=== PATIENT | male | born 1925 | race Caucasian/White ===

== ENCOUNTER 2016-10-04 14:39 | Inpatient (IN) | payer OTHER, MEDICAID ==
[~2016-10-04] VITALS: Ht 177.8 cm; Wt 81.6 kg
[2016-10-04 14:39] VITALS: BP 144/80; PULSE 72; RESP 15; TEMP 96.4; O2SAT 98
[~2016-10-04 14:39] MED LIST: ACET-1010 PO; ALPHAGAN1 OP; BISA-79 PO; BUDE6HFA INH; CHOL200010 PO; ERYEYE OP; FERR-57 PO; LOPE2CAP PO; NS 1000 ML BAG IV ONE; POLY17PO4 PO; PRAM0.5T3 PO; PRAM1TAB4 PO; PROP10DR2 EACH EYE; ROBAC PO; SER25 PO; TRIA1CAP53 PO; TRIA1CAP6 PO; TRIA80OI TP; VITD2000 PO; [UNRECOGNIZED DRUG - OTHER] OP
--- NOTE | 2016-10-04 14:39 | NUR ---
BIB BLS from [facility]. Placed in room 06. Placed on cardiac cath rn, blood pressure machine and pulse oximeter. To gown for exam. Side rails up. Report given to NEERAJ Ross.
--- NOTE | 2016-10-04 14:40 | NUR ---
PT BIB EMS FOR EVALUATION OF ABNORMAL LABS.PT ALOC BASELINE,NONVERBAL,HTN,PACEMAKER,CHF AND R EYE BLINDNESS.PT HYPOTHERMIC UPON ARIVAL 89.9 RECTAL. BROOKE GRAYSON ORDERED. INFORMED. SEPSIS PROTOCOL INITIATED.
--- NOTE | 2016-10-04 14:45 | NUR ---
ER at bedside examining patient.
--- NOTE | 2016-10-04 14:50 | NUR ---
# 20 gauge angiocath placed to L UPPER CHEST. Use of asceptic technique. Opsite placed over site. Blood return noted. Flushed with 10 cc of normal saline. No evidence of infiltration noted. Patient tolerated well.
[2016-10-04] MEDS ORDERED: NACL 0.9% 1,000 ML IV SCH (14:56)
[2016-10-04] MEDS ORDERED: cefTRIAXone 1 GM IVPB PREMIX 50 ML IV ONE (15:00)
[2016-10-04 15:28] LABS: BASOPHILS % (AUTO) 0.1 % (0.0-2.0); EOSINOPHILS # (AUTO) 0.2 K/uL (0.0-0.4); EOSINOPHILS % (AUTO) 2.1 % (0.0-4.0); HEMATOCRIT 34.3 % (36-54); HEMOGLOBIN 11.6 g/dL (14.0-18.0); LYMPHOCYTES # (AUTO) 1.1 K/uL (1.0-5.5); LYMPHOCYTES % (AUTO) 9.5 % (20.5-51.5); MEAN CORPUSCULAR HEMOGLOBIN 32 pg (27-31); MEAN CORPUSCULAR HGB CONC 34 % (32-36); MEAN CORPUSCULAR VOLUME 95 fL (79.0-98.0); MONOCYTES # (AUTO) 0.4 K/uL (0.0-1.0); MONOCYTES % (AUTO) 3.5 % (1.7-9.3); NEUTROPHILS # (AUTO) 9.7 K/uL (1.8-7.7); NEUTROPHILS % (AUTO) 84.8 % (40.0-70.0); RED CELL DISTRIBUTION WIDTH 15.4 % (9.0-15.0); WHITE BLOOD COUNT (AUTO) 11.4 K/uL (4.8-10.8)
--- NOTE | 2016-10-04 15:30 | NUR ---
PT TOLERATING ABX AND IVF.
[2016-10-04 15:34] LABS: ANION GAP 8 (5-15); CALCIUM 9.3 mg/dL (8.4-11.0); CHLORIDE 109 mmol/L (98-107); GLUCOSE 113 mg/dL (70-99); POTASSIUM 4.2 mmol/L (3.5-5.1); SODIUM SERUM 140 mmol/L (136-145); UREA NITROGEN, BLOOD 64 mg/dL (8-21)
[2016-10-04 15:38] LABS: ALANINE AMINOTRANSFERASE 16 U/L (12-78); ALBUMIN 2.7 g/dL (3.4-4.8); ASPARTATE AMINOTRANSFERASE 26 U/L (10-37); TOTAL BILIRUBIN 0.5 mg/dL (0.0-1.0); TOTAL PROTEIN, SERUM 7.2 g/dL (6.4-8.3)
[2016-10-04 15:39] LABS: PLATELET COUNT (AUTO) 94 K/uL (130-430)
[2016-10-04] MEDS ORDERED: PIPERACILLIN/TAZO 3.375 GM in NS 50 ML IV ONE (16:00)
--- NOTE | 2016-10-04 16:00 | NUR ---
# 16 FR Valdes catheter with use of sterile technique. Immediate return of 100 cc DARK YELLOW urine noted. Bedside drainage bag placed below level of bladder. Urine sample collected and sent to lab. Pt tolerated procedure WELL. Patient arrived with valdes in place, changed due to standard of practice prior to admission. Patient unable to toilet self.
[2016-10-04] MEDS ORDERED: ZIN220 PO (16:18)
[2016-10-04] MEDS ORDERED: ACET-2165 PO ×2 (16:18)
[2016-10-04] MEDS ORDERED: ALPR0.5T96 PO (16:18)
--- NOTE | 2016-10-04 16:19 | NUR ---
Medication reconciliation completed with information provided by Brandon Patel. Any prior medication reconciliation on file was reviewed and corrected.
[2016-10-04 16:32] LABS: BILIRUBIN,URINE NEGATIVE (NEGATIVE); BLOOD, URINE NEGATIVE (NEGATIVE); CLARITY/URINE HAZY (CLEAR); COLOR,URINE YELLOW (YELLOW); GLUCOSE,URINE NEGATIVE (NEGATIVE); KETONES,URINE NEGATIVE (NEGATIVE); LEUKOCYTE ESTERASE ,URINE NEGATIVE (NEGATIVE); NITRITE, URINE NEGATIVE (NEGATIVE); PH,URINE 5.5 (5.0-8.0); PROTEIN URINE NEGATIVE (NEGATIVE); UROBILINOGEN,URINE 0.2 (0.2-1.0)
[2016-10-04] MEDS ORDERED: PIPERACILLIN/TAZOBACTAM 3.375 GM/VIAL (ZOSYN) IV ONE (16:33)
[2016-10-04 16:45] LABS: BACTERIA,URINE MODERATE /HPF (None Seen); FINE GRANULAR CASTS,URINE 0-10 /LPF (None Seen); MUCUS,URINE 1+ /LPF (None Seen); RBC,URINE NONE SEEN /HPF (0-3)
--- NOTE | 2016-10-04 17:00 | NUR ---
TEMP 96.5.CONTINUING TO MONITOR.
--- NOTE | 2016-10-04 18:30 | NUR ---
Patient will be admitted to care of . Admitted to TELEMETR unit. Will go to room 105A. Belongings list completed. Summary report printed. Report given to ADMISSION RN.
--- NOTE | 2016-10-04 18:46 | NUR ---
ADMISSION NOTE Received patient from ER via [facility]. Patient admitted with diagnosis of Dehydration. Patient is awake, non-verbal. Patient's daughter at bedside. Patient informed that Martha Winn will be his nurse and that their room number is 105A. Call light within reach.
[2016-10-04 18:50] VITALS: BP 94/63; PULSE 74; RESP 17; TEMP 96.9; O2SAT 90
--- NOTE | 2016-10-04 19:26 | NUR ---
paged for Dr Lau, dialed . s/w Blayne.
[2016-10-04] MEDS ORDERED: ACETAMINOPHEN 325 MG TABLET PO PRN ×2 (19:45)
[2016-10-04] MEDS ORDERED: ALPRAZolam 0.25 MG TABLET PO PRN (19:45)
[2016-10-04] MEDS ORDERED: POLYETHYLENE GLYCOL 3350, 17 GM/ POWD.PACK PO PRN (19:45)
[2016-10-04] MEDS ORDERED: ACETAMINOPHEN 500 MG TABLET PO PRN (19:45)
[2016-10-04] MEDS ORDERED: NS 500 ML IV ONE (19:45)
[2016-10-04] MEDS ORDERED: cefTRIAXone 1 GM IVPB PREMIX 50 ML IV SCH (20:00)
--- NOTE | 2016-10-04 20:00 | NUR ---
DR. STEINBERG CALLED BACK. GOT AN ORDER FOR BOTH WRIST AND MITTEN RESTRAINTS. PATIENT COMBATIVE, 3 STAFFS TO INITIATE RESTRAINTS. SPITTING./ HITTING STAFFS.
--- NOTE | 2016-10-04 20:11 | NUR ---
paged for Dr Lau, dialed . s/w Kassi.
[2016-10-04] MEDS ORDERED: BRIMONIDINE TARTRATE 0.1% 5 mL EYE DROPS OP SCH (21:00)
--- NOTE | 2016-10-04 21:30 | NUR ---
PO MEDS NOT GIVEN. REFUSE TO OPEN MOUTH,INSTEAD SPITTING SALIVA. ESTEVES CATH PATENT.
[2016-10-04] MEDS: PRAMIPEXOLE DI-HCL 0.25 MG TABLET PO SCH (22:00)
[2016-10-04] MEDS: QUEtiapine FUMARATE 25 MG TABLET PO SCH (22:00)
[2016-10-04] MEDS: BRIMONIDINE TARTRATE 0.2% 5 mL EYE DROPS OP SCH (22:00)
--- NOTE | 2016-10-04 23:00 | NUR ---
WOUND PICTURES TAKEN BY 4 STAFFS PICTURE TAKEN.REPOSITIONED.
[2016-10-04] MEDS: NACL 0.9% 1,000 ML IV SCH (23:25)
[2016-10-05 00:51] VITALS: BP 109/80; PULSE 78; RESP 16; TEMP 97.1; O2SAT 96
--- NOTE | 2016-10-05 02:00 | NUR ---
REPOSITIONED. COMBATIVE STILL.
--- NOTE | 2016-10-05 03:00 | NUR ---
ORDER OF AIR MATTRESS GIVEN TO NSG.OFFSET PLATE MAKER.
[2016-10-05 04:00] VITALS: BP 111/84; PULSE 84; RESP 16; TEMP 97.6; O2SAT 98
--- NOTE | 2016-10-05 06:30 | NUR ---
CLOSING: PATIENT REMAINS CALM. NO ACUTE DISTRESS. ALL NEEDS WERE ATTENDED.
[2016-10-05 07:14] LABS: BASOPHILS % (AUTO) 0.2 % (0.0-2.0); EOSINOPHILS # (AUTO) 0.3 K/uL (0.0-0.4); EOSINOPHILS % (AUTO) 2.6 % (0.0-4.0); HEMATOCRIT 31.4 % (36-54); HEMOGLOBIN 10.5 g/dL (14.0-18.0); LYMPHOCYTES % (AUTO) 9.4 % (20.5-51.5); MEAN CORPUSCULAR HEMOGLOBIN 32 pg (27-31); MEAN CORPUSCULAR HGB CONC 33 % (32-36); MEAN CORPUSCULAR VOLUME 95 fL (79.0-98.0); MONOCYTES # (AUTO) 0.6 K/uL (0.0-1.0); MONOCYTES % (AUTO) 5.5 % (1.7-9.3); NEUTROPHILS # (AUTO) 8.6 K/uL (1.8-7.7); PLATELET COUNT (AUTO) 101 K/uL (130-430); RED BLOOD CELL COUNT(AUTO) 3.31 MIL/uL (4.2-6.2); RED CELL DISTRIBUTION WIDTH 15.8 % (9.0-15.0); WHITE BLOOD COUNT (AUTO) 10.5 K/uL (4.8-10.8)
--- NOTE | 2016-10-05 07:20 | NUR ---
AM Rounds: Received pt sitting semi-fowlers in bed. No acute signs of distress noted. Pt is easily arousable to name and tapping. Pt is difficult to understand, speech is garbled, does not follow simple commands. Bilateral wrist restraints and mittens noted. Neuro and circulation intact to BUE and BLE. Brisk cap refill, strong hand eyelet machine operator, pulses palpable, and active ROM to BUE and BLE. Redness noted to BUE around wrist restraints. Pt is pulling hard against restraints. Dressings to heel, and elbow CDI. IV infusing well to Right upper arm with no redness or swelling noted to site. Damon cath draining well to gravity. Call light in reach. Aspiration precautions in place. Heel elevated at this time. Continue to monitor pt closely.
[2016-10-05] MEDS: NACL 0.9% 1,000 ML IV SCH ×2 (07:59→15:54)
--- NOTE | 2016-10-05 08:00 | NUR ---
PATIENT CALM. REFUSING ORAL CARE. Addendum: 10/05/16 at 0852 by Isabel Núñez RN TIME OF THIS NOTES IS 0400HR.
[2016-10-05 08:05] VITALS: BP 123/57; PULSE 82; RESP 18; TEMP 97.8; O2SAT 92
[2016-10-05 08:28] LABS: ANION GAP 7 (5-15); CALCIUM 8.7 mg/dL (8.4-11.0); CHLORIDE 111 mmol/L (98-107); FREE T4 (FREE THYROXINE) 0.7 ng/dL (0.6-1.6); GLUCOSE 76 mg/dL (70-99); POTASSIUM 4.6 mmol/L (3.5-5.1); SODIUM SERUM 141 mmol/L (136-145); THYROID STIMULATING HORMONE 1.03 uIu/mL (0.34-4.82); UREA NITROGEN, BLOOD 54 mg/dL (8-21)
[2016-10-05] MEDS: QUEtiapine FUMARATE 25 MG TABLET PO SCH ×5 (09:00→21:00)
[2016-10-05] MEDS: CHOLECALCIFEROL (VITAMIN D3) 2,000 UNIT TABLET PO SCH (09:00)
[2016-10-05] MEDS: PRAMIPEXOLE DI-HCL 0.25 MG TABLET PO SCH ×3 (09:00→21:00)
[2016-10-05] MEDS: FERROUS SULFATE 325 MG TABLET.DR PO SCH (09:00)
[2016-10-05] MEDS: BRIMONIDINE TARTRATE 0.2% 5 mL EYE DROPS OP SCH ×2 (09:00→21:00)
[2016-10-05] MEDS: ACETAMINOPHEN 325 MG TABLET PO SCH (09:00)
--- NOTE | 2016-10-05 09:39 | NUR ---
RN Rounds: Pt refuse meds, refuse to swallow meds and spitting back out at nurse. Bilateral wrist restraints and mittens in place. No acute signs of distress noted. IV fluids infusing well to Left upper arm with no redness or swelling to site. Call light in reach. Continue to monitor.
[2016-10-05 11:04] LABS: NEUTROPHILS % (AUTO) 82.3 % (40.0-70.0)
[2016-10-05 11:15] VITALS: BP 118/57; PULSE 72; RESP 20; TEMP 97.6; O2SAT 98
--- NOTE | 2016-10-05 11:25 | NUR ---
Rounds: Pt sitting semi-fowlers in bed. No acute signs of distress noted. Sleeping, breathing even and unlabored on room air. Call light in reach. Pt pulling hard on restraints at this time. Damon cath draining well to gravity. Continue to monitor.
--- NOTE | 2016-10-05 13:16 | NUR ---
Rounds: Pt sitting semi-fowlers in bed. Refusing applesauce at this time. IV fluids infusing well to LUE with no redness or swelling noted to site. Call light in reach. Restraints and mittens in place to bilateral wrists. Continue to monitor.
--- NOTE | 2016-10-05 15:08 | NUR ---
Dr. Lau Here" Dr. Lau here, aware of that pt is refusing meds and all food at this time. Pt transferred to air mattress. Pt tolerates well. Damon cath and bilateral wrist restraints and mittens in place.
[2016-10-05] MEDS: cefTRIAXone 1 GM IVPB PREMIX 50 ML IV SCH (15:54)
[2016-10-05 16:05] VITALS: BP 121/65; PULSE 68; RESP 20; TEMP 96.4; O2SAT 98
--- NOTE | 2016-10-05 17:40 | NUR ---
Rounds: Pt sleeping in bed. Refusing meds, spitting food at this time. Bilateral wrist restraints and mittens in place. Damon cath draining well to gravity. Call light in reach. Continue to monitor
--- NOTE | 2016-10-05 18:43 | NUR ---
Closing Note: Pt is sleeping in bed. Continues to spit out food and refuse meds. No acute signs of distress noted. Wrist restraints and mittens in place to BUE. IV fluid infusing well to LUE with no redness or swelling noted to site. Call light in reach. Damon cath draining well to gravity. No other needs noted. Bilateral heels elevated on pillow. All needs met throughout shift. Endorse plan of care to NAHED RN.
--- NOTE | 2016-10-05 19:10 | NUR ---
PM ASSESSMENT: Patient awake, does not follow commands, words incomprehensible. Breathing even and unlabored. On low air loss mattress. IV access on the left upper arm G 20, patent and intact. No signs of redness or swelling on the IV site. Damon cath draining yellow urine. Bilateral wrist restraints in place. Good circulation on both upper extremities. 2 side rails up with bed in lowest level. Bed brakes locked. Placed call light within reach. Will continue to monitor.
[2016-10-05 20:00] VITALS: TEMP 97
--- NOTE | 2016-10-05 21:30 | NUR ---
MED REFUSAL: Patient refused vital signs to be taken earlier. Explained importance of monitoring vital signs but patient made his arm stiff to not be able to take them. Will try again later. Patient in no acute distress. Will continue to monitor.
--- NOTE | 2016-10-05 22:55 | NUR ---
PT UPDATE: Patient continues to refuse vital signs and also refused medications by threatening to spit. Patient became combative, trying to let loose from the restraints. Explained in Bulgarian but patient still refused.
--- NOTE | 2016-10-06 00:25 | NUR ---
PT UPDATE: Patient sleeping comfortably. No acute distress or SOB noted at this time. Fall and safety precautions in place. Will continue to monitor.
[2016-10-06 00:57] VITALS: BP 113/84; PULSE 76; RESP 16; TEMP 97.9; O2SAT 98
[2016-10-06 04:18] VITALS: BP 118/78; PULSE 82; RESP 17; TEMP 98.6; O2SAT 100
[2016-10-06 07:34] LABS: ANION GAP 8 (5-15); CALCIUM 8.9 mg/dL (8.4-11.0); CHLORIDE 112 mmol/L (98-107); CREATININE 2.14 mg/dL (0.55-1.30); GLUCOSE 65 mg/dL (70-99); POTASSIUM 4.6 mmol/L (3.5-5.1); SODIUM SERUM 142 mmol/L (136-145); UREA NITROGEN, BLOOD 44 mg/dL (8-21)
[2016-10-06] MEDS: NACL 0.9% 1,000 ML IV SCH ×2 (07:40→23:03)
[2016-10-06 08:00] VITALS: BP 153/77; PULSE 7; RESP 18; TEMP 97; O2SAT 96
--- NOTE | 2016-10-06 08:00 | NUR ---
initial notes rec patient awake alert with periods of confusion. patient willing to have his vital signs check and to take po pills. iv on the l upper shoulder intact and no s/s of infiltration noted. resp easy and unlabored. on air loss matres for wound mgt. bed in low position and side rails up and locked. pt close to the nurses station. will continue to monitor patient.
[2016-10-06] MEDS: PRAMIPEXOLE DI-HCL 0.25 MG TABLET PO SCH ×3 (08:31→20:45)
[2016-10-06] MEDS: BRIMONIDINE TARTRATE 0.2% 5 mL EYE DROPS OP SCH ×2 (08:31→20:45)
[2016-10-06] MEDS: CHOLECALCIFEROL (VITAMIN D3) 2,000 UNIT TABLET PO SCH (08:32)
[2016-10-06] MEDS: QUEtiapine FUMARATE 25 MG TABLET PO SCH ×4 (08:32→20:45)
[2016-10-06] MEDS: FERROUS SULFATE 325 MG TABLET.DR PO SCH (08:32)
[2016-10-06] MEDS: ACETAMINOPHEN 325 MG TABLET PO SCH (08:34)
--- NOTE | 2016-10-06 09:40 | NUR ---
Nutrition Update Edin Scale 13 noted. Pt admitted for dehydration. Diet: mechanical soft BMI: 25.8 kg/m2 RD to follow per nutrition care standards.
--- NOTE | 2016-10-06 10:00 | NUR ---
rounds due meds were crushed and given to patient and taken without any problem. sleeps at intervals.
[2016-10-06 12:00] VITALS: BP 146/83; PULSE 70; RESP 21; TEMP 96; O2SAT 96
--- NOTE | 2016-10-06 12:00 | NUR ---
rounds denies any pain and complaint at this time. no sob noted.
--- NOTE | 2016-10-06 14:00 | NUR ---
rounds sleeping at this time. no acute distress noted
[2016-10-06] MEDS: cefTRIAXone 1 GM IVPB PREMIX 50 ML IV SCH (14:19)
[2016-10-06 15:03] VITALS: Ht 177.8 cm; Wt 81.6 kg
[2016-10-06 16:00] VITALS: BP 119/64; PULSE 60; RESP 21; TEMP 96.1; O2SAT 95
--- NOTE | 2016-10-06 16:06 | NUR ---
rounds wound care with adela on the l heel and sacral area at bedside. dr matthews gave wound tx order.
--- NOTE | 2016-10-06 16:06 | NUR ---
Wound Evaluation: Wound Consult received from Dr. Lau. Thank you, Dr. Lau, for the consult. Patient received in a [facility] bed with a low air-loss mattress, awake, non-verbal, non-responsive to verbal commands. Skin is poor. Patient is unable to turn in bed independently. Edin score is a 13. 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 Recent labs: WBC 10.5, RBC 3.31, Hgb 10.5, Hct 31.4, PLT 101, Cl 112, BUN 44, Creat 2.14, Gluc 65, BNP 181. Intrinsic factors that delay wound healing: Hypoglycemia, chronic Kidney Disease. Extrinsic factors that delay wound healing: Immobility. MRSA Screen and Urine Culture results negative. Blood Culture results x 2 in progress. Wound Assessment: 1) Left Heel: Unstageable pressure injury, present on admission. Wound bed is 50% black tissue, 45% brown tissue, 5% pink tissue. Mild odor, scant brown purulent drainage. Aden-wound white. Measures 3.0 cm x 4.3 cm. Small non-intact skin area on heel, medial to wound. Recommend: Cleanse wound with normal saline. Put moisture barrier cream onto aden-wound. Put Venelex ointment onto wound bed. Cover with foam dressing. Perform wound care daily, and as needed for dressing soiling or dislodgment. 2) Right Lower Buttock Area: Dark spot, possible mole, present on admission. No odor, no drainage. Measures 0.8 cm x 1.0 cm. 3) Gluteal Sulcus Area: Scar tissue, present on admission. No odor, no drainage. Recommend: Cleanse sites with normal saline. Pat dry. Place moisture barrier cream onto involved areas. Perform site care qid, and as needed for soiling. 4) Left Knee: Chronic wound, preset on admission. 90% dark pink, 10% black eschar. No odor, no drainage. Dry, stable. Measures 0.8 cm x 0.7 cm. Recommend: No dressing needed. Continue to monitor site for worsening condition. Also recommend: Reposition patient side to side only every two hours with pillow support, and off-load pressure areas with pillows for pressure re-distribution. Offload, elevate and float left heel with Heeliftboot, right heel with pillow. Perform skin care and monitor skin integrity q shift. Use moisture barrier cream on buttocks, and other moisture susceptible areas qid and as needed for soiling. Maintain patient on a low air-loss mattress. Recommend surgical consult. Spoke with Dr. Huynh and he entered orders for Dr. Rubio for surgical consult, and for Venelex ointment.
--- NOTE | 2016-10-06 16:20 | NUR ---
Surgical Consult: for Dr. Rubio, regarding left heel pressure ulcer, ordered by Dr. Huynh, spoke with Myah.
--- NOTE | 2016-10-06 18:30 | NUR ---
closing notes resting quietly at this time. no sob noted. luis restraints in place.
[2016-10-06 19:30] VITALS: BP_SYST 129; BP_DIAS 67; BP_DIAS 69; PULSE 60; RESP 16; RESP 18; TEMP 98.2; O2SAT 98
--- NOTE | 2016-10-06 19:30 | NUR ---
NOTES RECEIVED THE PT FROM THE DAY NURSE.PT A/A/OX3 MONITOR IN PLACE AND SHOWS SR WITH BBB LT HEEL IS BLACK .WAITING FOR THE OINTMENT FROM THE PHARMACY.IV INTACT TO LT UPPER ARM AT 150CC/HR.AIR MATTRESS WORKING WELL.ESTEVES CATH INTACT AND DRAINING WELL ,WRIST RESTRAINTS REMOVED X 15 MIN.BOTH ARMS EDEMATOUS WITH BRUISES.CALL LIGHT WITHIN REACH SAFETY MEASURES IN PROGRESS.CONTINUE TO MONITOR
[2016-10-06] MEDS: BALSAM PERU/CASTOR OIL 60 GM OINT...G. TP SCH (20:45)
--- NOTE | 2016-10-06 21:35 | NUR ---
notes wrist restraints removed x 15 min.medication foam dressing followed by zahra and heel boot applied to lt heel as ordered.continue to monitor pt with no complaints.
--- NOTE | 2016-10-06 21:49 | NUR ---
notes dr henriquez here making rounds.
--- NOTE | 2016-10-06 23:22 | NUR ---
notes scd applied to lower extremities.wrist restraints removed x 15 min.pt repositioned with pillow support.continue to monitor.
[2016-10-07] VITALS (7 sets, daily range): BP systolic 124–160; BP diastolic 72–86; PULSE 60–70; RESP 16–18; TEMP 96–98.4; O2SAT 97–100
--- NOTE | 2016-10-07 00:30 | NUR ---
INITIAL NOTE: RECEIVED PATIENT FROM DARCIE PICKARD IN SBAR FORMAT. PATIENT IN NO DISTRESS. RESTRAINTS NOTED TO BOTH WRISTS, AREA WITHIN NORMAL LIMITS. IVF INFUSING ORDERED. ESTEVES IN PLACE DRAINING TO GRAVITY CLEAR YELLOW URINE. WILL CONTINUE TO MONITOR.
--- NOTE | 2016-10-07 00:37 | NUR ---
notes pt sleeping,pt endorsed to the RN.
--- NOTE | 2016-10-07 02:10 | NUR ---
ROUNDS: PATIENT RESTING IN NO DISTRESS. RESTRAINTS REMAIN IN PLACE, AREA WITHIN WNL. WILL CONTINUE TO MONITOR.
--- NOTE | 2016-10-07 04:33 | NUR ---
ROUNDS: PATIENT RESTING QUIETLY, IN NO DISTRESS. REPOSITIONED PATIENT, WILL CONTINUE TO MONITOR.
--- NOTE | 2016-10-07 06:29 | NUR ---
CLOSING NOTE: PATIENT RESTING QUIETLY, IN NO DISTRESS. RELEASED THE WRIST RESTRAINTS FOR 15 MIN, CIRCULATION AND NEURO WNL. VITAL SIGNS REMAINED STABLE. WILL ENDORSE PATIENT TO DAY SHIFT NURSE.
[2016-10-07 07:50] LABS: BASOPHILS % (AUTO) 0.2 % (0.0-2.0); EOSINOPHILS # (AUTO) 0.2 K/uL (0.0-0.4); EOSINOPHILS % (AUTO) 3.4 % (0.0-4.0); HEMATOCRIT 34.5 % (36-54); HEMOGLOBIN 11.4 g/dL (14.0-18.0); LYMPHOCYTES % (AUTO) 13.6 % (20.5-51.5); MEAN CORPUSCULAR HEMOGLOBIN 32 pg (27-31); MEAN CORPUSCULAR HGB CONC 33 % (32-36); MEAN CORPUSCULAR VOLUME 96 fL (79.0-98.0); MONOCYTES # (AUTO) 0.4 K/uL (0.0-1.0); MONOCYTES % (AUTO) 5.6 % (1.7-9.3); NEUTROPHILS # (AUTO) 5.5 K/uL (1.8-7.7); NEUTROPHILS % (AUTO) 77.2 % (40.0-70.0); RED BLOOD CELL COUNT(AUTO) 3.59 MIL/uL (4.2-6.2); WHITE BLOOD COUNT (AUTO) 7.1 K/uL (4.8-10.8)
[2016-10-07 07:57] LABS: ANION GAP 8 (5-15); CALCIUM 8.7 mg/dL (8.4-11.0); CHLORIDE 113 mmol/L (98-107); CREATININE 1.77 mg/dL (0.55-1.30); GLUCOSE 74 mg/dL (70-99); POTASSIUM 4.6 mmol/L (3.5-5.1); SODIUM SERUM 143 mmol/L (136-145); UREA NITROGEN, BLOOD 38 mg/dL (8-21)
[2016-10-07] MEDS: NACL 0.9% 1,000 ML IV SCH ×2 (07:59→18:13)
--- NOTE | 2016-10-07 08:00 | NUR ---
INITIAL NOTE PT LYING IN BED, AROUSES TO NAME, A/OX1, NOTED SOFT RESTRAINTS TO BILATERAL WRISTS, SKIN INTACT, NO S/S OF IRRITATION NOTED. IV INFUSING TO LEFT UPPER ARM, PATENT, NO S/S OF INFILTRATION NOTED. ESTEVES CATHETER DRAINING TO GRAVITY CLEAR YELLOW URINE. DRESSING NOTED TO RIGHT HAND, CLEAN, DRY AND INTACT. DRESSING NOTED TO LEFT HEEL CLEAN DRY AND INTACT AND IN A HEAL PROTECTOR. VSS. SAFETY MEASURES IN PLACE, BED IN LOW POSITION, CALL LIGHT WITHIN REACH, WILL FOLLOW UP.
[2016-10-07 08:31] LABS: PLATELET COUNT (AUTO) 89 K/uL (130-430)
--- NOTE | 2016-10-07 08:40 | NUR ---
DR HILL AT BEDSIDE.
[2016-10-07] MEDS: PRAMIPEXOLE DI-HCL 0.25 MG TABLET PO SCH ×5 (09:00→20:38)
--- NOTE | 2016-10-07 09:01 | NUR ---
Nutrition Note Nutrition Consult (Wound) received 10/06/162048. Pt was seen and assessed by RD on 10/06/16. Please refer to Nutrition Assessment for details. RD to continue to follow per nutrition care standards.
[2016-10-07] MEDS: CHOLECALCIFEROL (VITAMIN D3) 2,000 UNIT TABLET PO SCH ×2 (09:08→09:09)
[2016-10-07] MEDS: QUEtiapine FUMARATE 25 MG TABLET PO SCH ×4 (09:08→20:38)
[2016-10-07] MEDS: FERROUS SULFATE 325 MG TABLET.DR PO SCH ×2 (09:08→09:09)
[2016-10-07] MEDS: ACETAMINOPHEN 325 MG TABLET PO SCH ×2 (09:09→10:58)
[2016-10-07] MEDS: BRIMONIDINE TARTRATE 0.2% 5 mL EYE DROPS OP SCH ×2 (09:12→20:39)
--- NOTE | 2016-10-07 09:20 | NUR ---
PATIENT NPO FOR PENDING PROCEDURE THIS MORNING, MORNING MEDICATIONS WASTED DUE TO ALREADY PREPARED AND HELD
--- NOTE | 2016-10-07 10:05 | NUR ---
Pt picked up for procedure, no s/s of distress noted, stable.
--- NOTE | 2016-10-07 10:50 | NUR ---
PT RETURNED FROM PROCEDURE, NO S/S OF DISTRESS OR COMPLAINT OF PAIN, BLOOD PRESSURE ELEVATED OTHERWISE VITALS STABLE , WILL MONITOR. IV INFUSING TO LEFT UPPER ARM, DRESSING IN PLACE TO LEFT HEAL POST DEBRIDEMENT, CLEAN DRY AND INTACT. SAFETY MEASURES IN PLACE, PT RELEASED FROM RESTRAINTS FOR 15 MIN, NUERO CHECKS COMPLETED, SKIN INTACT, NO S/S OF IRRITATION NOTED. CALL LIGHT WITHIN REACH, WILL FOLLOW UP.
--- NOTE | 2016-10-07 13:00 | NUR ---
ROUNDS PT ASSISTED WITH HAVING LUNCH, TOLERATED WELL.
--- NOTE | 2016-10-07 14:00 | NUR ---
ROUNDS PT RELEASED FROM RESTRAINTS FOR 15 MIN, CINTHYA CHECKS, COMPLETE, PT REPOSITIONED, WITH PILLOW SUPPORT TO LOWER EXTREMITIES, NO S/S OF DISTRESS OR DISCOMFORT NOTED, SAFETY MEASURES IN PLACE, BED IN LOW POSITION. WILL FOLLOW UP.
[2016-10-07] MEDS: cefTRIAXone 1 GM IVPB PREMIX 50 ML IV SCH (14:24)
--- NOTE | 2016-10-07 16:00 | NUR ---
ROUNDS PT RELEASED FORM RESTRAINTS, REPOSITIONED WILL PILLOW SUPPORT, NO S/S OF DISTRESS OR DISCOMFORT NOTED, NEEDS ATTENDED TO, WILL FOLLOW UP.
--- NOTE | 2016-10-07 18:30 | NUR ---
CLOSING NOTE PT LYING IN BED, A/O X1, AROUSES TO NAME, NO S/S OF DISTRESS OR PAIN NOTED, IV INFUSING TO LEFT UPPER ARM, IV SITE PATENT WITH NO S/S OF INFILTRATION. SOFT RESTRAINTS TO BILATERAL WRISTS IN PLACE, NEURO CHECKS COMPLETE, RELEASED FOR 15 MIN. ESTEVES CATHETER DRAINING TO GRAVITY CLEAR YELLOW URINE, LEFT HEAL ELEVATED WITH PILLOW SUPPORT, SAFETY MEASURES IN PLACE, BED IN LOW POSITION, CALL LIGHT WITHIN REACH, WILL ENDORSE CARE TO FOLLOWING SHIFT.
--- NOTE | 2016-10-07 19:30 | NUR ---
NOTES RECEIVED THE PT FROM THE DAY NURSE.PT ALERT AND ORIENTED X1.NO C/O PAIN WHEN ASKED.MONITOR IN PLACE AND SHOWS SR WITH BBB. HEEL BOOT IN PLACE TO LT FOOT.SCD IN PLACE TO LOWER EXTREMITIES.IV TO LT UPPER ARM INTACT.NO REDNESS OR SWELLING NOTED.WRIST RESTRAINTS IN PLACE AND WAS REMOVED X [address] AND IS DRAINING WELL.SWELLING AND BRUISING NOTED TO BOTH ARMS.CALL LIGHT WITHIN REACH SAFETY MEASURES IN PROGRESS. CONTINUE TO MONITOR.
--- NOTE | 2016-10-07 21:27 | NUR ---
WRIST RESTRAINTS REMOVED X 15 MIN.PT RESTING .REPOSITIONED WITH PILLOW SUPPORT.CONTINUE TO MONITOR.
--- NOTE | 2016-10-07 23:39 | NUR ---
NOTES RESTRAINTS REMOVED X 15 MIN.PT RESTING.CALL LIGHT WITHIN REACH.CONTINUE TO MONITOR.
--- NOTE | 2016-10-08 01:33 | NUR ---
NOTES REPOSITIONED WITH PILLOW SUPPORT.RESTRAINTS REMOVED X15 MIN.NO DISTRESS NOTED.
--- NOTE | 2016-10-08 03:20 | NUR ---
NOTES PT SLEEPING.RESTRAINTS REMOVED X 15 MIN.NO DISTRESS NOTEDCONTINUE TO MONITOR.
[2016-10-08 04:29] VITALS: BP 148/76; PULSE 60; RESP 17; TEMP 98.4; O2SAT 98
--- NOTE | 2016-10-08 05:20 | NUR ---
notes bed bath given ,linen changed.restraints removed x 15 min.continue to monitor.
--- NOTE | 2016-10-08 06:19 | NUR ---
closing notes restraints removed x 15 min.will endorse the care of the pt to the day nurse.
[2016-10-08 07:26] LABS: BASOPHILS % (AUTO) 0.2 % (0.0-2.0); EOSINOPHILS # (AUTO) 0.2 K/uL (0.0-0.4); HEMATOCRIT 34.6 % (36-54); HEMOGLOBIN 11.6 g/dL (14.0-18.0); LYMPHOCYTES # (AUTO) 0.8 K/uL (1.0-5.5); MEAN CORPUSCULAR HEMOGLOBIN 32 pg (27-31); MEAN CORPUSCULAR HGB CONC 33 % (32-36); MEAN CORPUSCULAR VOLUME 94 fL (79.0-98.0); MONOCYTES # (AUTO) 0.3 K/uL (0.0-1.0); MONOCYTES % (AUTO) 3.6 % (1.7-9.3); NEUTROPHILS # (AUTO) 5.9 K/uL (1.8-7.7); NEUTROPHILS % (AUTO) 82.2 % (40.0-70.0); PLATELET COUNT (AUTO) 93 K/uL (130-430); RED BLOOD CELL COUNT(AUTO) 3.67 MIL/uL (4.2-6.2); RED CELL DISTRIBUTION WIDTH 15.6 % (9.0-15.0); WHITE BLOOD COUNT (AUTO) 7.2 K/uL (4.8-10.8)
[2016-10-08 07:49] VITALS: BP 162/86; PULSE 60; RESP 16; TEMP 98.3; O2SAT 98
[2016-10-08 08:00] LABS: ANION GAP 7 (5-15); CALCIUM 8.7 mg/dL (8.4-11.0); CHLORIDE 112 mmol/L (98-107); CREATININE 1.46 mg/dL (0.55-1.30); GLUCOSE 66 mg/dL (70-99); POTASSIUM 4.7 mmol/L (3.5-5.1); SODIUM SERUM 141 mmol/L (136-145); UREA NITROGEN, BLOOD 32 mg/dL (8-21)
--- NOTE | 2016-10-08 08:01 | NUR ---
AM rounds Pt awake alert x1, non verbal. Pt tracks movement and localizes pain as well. BP elevated. will medicate as ordered. Pt noted with bilateral upper and lower extremities edema, pitting +3-4. right arm with wound noted. Bilateral wrist restraints, released at this time as well. Pt has IV to the left shoulder 20g, patent with no sign of infiltration. Pt seems calm at this time not puling lines. Bilateral heels elevated on pillow w3ith the left heel in a heel li8ft boot. Pt repositioned and HOB elevated for breakfast.
[2016-10-08] MEDS: BRIMONIDINE TARTRATE 0.2% 5 mL EYE DROPS OP SCH ×2 (09:51→21:59)
[2016-10-08] MEDS: BALSAM PERU/CASTOR OIL 60 GM OINT...G. TP SCH (09:52)
[2016-10-08] MEDS: PRAMIPEXOLE DI-HCL 0.25 MG TABLET PO SCH ×3 (09:55→21:59)
[2016-10-08] MEDS: QUEtiapine FUMARATE 25 MG TABLET PO SCH ×4 (09:55→21:59)
[2016-10-08] MEDS ORDERED: ACETAMINOPHEN 325 MG TABLET PO ONE (10:00)
[2016-10-08] MEDS ORDERED: FERROUS SULFATE 325 MG TABLET.DR PO ONE (10:00)
[2016-10-08] MEDS ORDERED: CHOLECALCIFEROL (VITAMIN D3) 2,000 UNIT TABLET PO ONE (10:00)
[2016-10-08] MEDS: NACL 0.9% 1,000 ML IV SCH ×2 (10:24→23:51)
--- NOTE | 2016-10-08 11:07 | NUR ---
skin care / wound assessment and care. Right arm wound care done and picture taken.
--- NOTE | 2016-10-08 11:54 | NUR ---
DISCHARGE PLANNING Faxed referral to [facility] [phone] for possible discharge back to [facility]. Will follow up on bed availability. Addendum: 10/08/16 at 1737 by Latisha LUCAS Patient assigned to room 6B at [facility] RN to report , bed available anytime. Any transport can be arranged.
[2016-10-08 12:00] VITALS: BP 148/86; PULSE 70; RESP 21; TEMP 96.5; O2SAT 97
--- NOTE | 2016-10-08 13:00 | NUR ---
Wound Re-Evaluation: Patient received in a [facility] bed with a low air-loss mattress, awake, non-verbal, non-responsive to verbal commands. Skin is poor. Patient is unable to turn in bed independently. Edin score is a 14. Intrinsic factors that delay wound healing: Hypoglycemia, chronic Kidney Disease. Extrinsic factors that delay wound healing: Immobility. Blood Culture results x 2 in progress. Wound Assessment: 1) Left Heel: Unstageable pressure ulcer, present on admission. Post surgical debridement by Dr. Rubio on 10/07/16. Wound bed is 50% black tissue, 45% yellow tissue, 5% yellow/brown tissue. No odor, no drainage. Aden-wound pink and white. Measures 2.7 cm x 4.7 cm x 0.5 cm. Small non-intact skin area on heel, medial to wound. Recommend continue: Cleanse wound with normal saline. Put moisture barrier cream onto aden-wound. Put Venelex ointment onto wound bed. Cover with foam dressing. Wrap with zahra wrap. Perform wound care daily, and as needed for dressing soiling or dislodgment. 2) Right Lower Buttock Area: Dark spot, possible mole, present on admission. No odor, no drainage. 3) Gluteal Sulcus Area: Scar tissue, present on admission. No odor, no drainage. Recommend continue: Cleanse sites with normal saline. Pat dry. Place moisture barrier cream onto involved areas. Perform site care qid, and as needed for soiling. 4) Left Knee: Chronic wound, preset on admission. 90% dark pink, 10% black eschar. No odor, no drainage. Dry, stable. Recommend continue: No dressing needed. Continue to monitor site for worsening condition. Also recommend continue: Reposition patient side to side only every two hours with pillow support, and off-load pressure areas with pillows for pressure re-distribution. Offload, elevate and float left heel with Heeliftboot, right heel with pillow. Perform skin care and monitor skin integrity q shift. Use moisture barrier cream on buttocks, and other moisture susceptible areas qid and as needed for soiling. Maintain patient on a low air-loss mattress.
--- NOTE | 2016-10-08 13:00 | NUR ---
Skin care, wound care done per guidelines. Wound care nurse at bedside. Addendum: 10/08/16 at 1444 by Sole Delgado RN Right heel post debriding.
--- NOTE | 2016-10-08 14:46 | NUR ---
Discharge Planning Called and discussed POC with Dr Huynh and he stated that his plan is to send patient back to SNF tomorrow after recommendations have been reviewed for wound care.
[2016-10-08 16:00] VITALS: BP 141/76; PULSE 70; RESP 21; TEMP 96.5; O2SAT 96
[2016-10-08] MEDS: cefTRIAXone 1 GM IVPB PREMIX 50 ML IV SCH (16:56)
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
--- NOTE | 2016-10-08 17:51 | NUR ---
Dr Huynh called back. Notified him that pt is aggitated, attempting to pull out IV and valdes catheter, attempting to hit and is seemingly agitated even with medications. Pete order received for soft wrist restraints.
--- NOTE | 2016-10-08 18:34 | NUR ---
Closing note Patient asleep at this time. Soft wrist restraints, not constricting, able to fit two fingers between. IV is patent and no sign of infiltration noted. Left heel on heel lift boot and heels elevated on pillow. Damon draining to gravity. Call light in reach as well.
[2016-10-08 20:00] VITALS: BP 143/75; PULSE 75; RESP 19; TEMP 98.5; O2SAT 95
--- NOTE | 2016-10-08 20:14 | NUR ---
OPENING NOTE Pt. and report received from day shift nurse. Pt. is resting quietly in bed with no s/s of acute distress. Safety measures in place. Room near nurses station. Airloss mattress present, working well with bed alarm on. No s/s of injury related to bilateral soft wrist restraints. Will continue to monitor.
--- NOTE | 2016-10-08 22:00 | NUR ---
DUE MEDS Late entry due to pt. care. Due meds administered as ordered. Pt. tolerated well. No s/s of acute distress. No s/s of injury related to bilateral soft wrist restraints. Safety measures in place. Room near nurses station. Will continue to monitor.
--- NOTE | 2016-10-08 23:50 | NUR ---
IV FLUIDS Late entry due to pt. care. IV fluid bag change; IV fluids infusing as ordered. No s/s of acute distress. Safety measures in place. Room near nurses station. Will continue to monitor.
[2016-10-08 23:59] VITALS: BP 145/75; PULSE 70; RESP 17; TEMP 98; O2SAT 96
--- NOTE | 2016-10-09 | NUR ---
ROUNDS Late entry due to pt. care. Pt. is resting quietly in bed. Respirations are even and unlabored with visible chest rise and fall. No s/s of acute distress. Safety measures in place. No s/s of injury related to bilateral soft wrist restraints. Room near nurses station. Will continue to monitor.
--- NOTE | 2016-10-09 02:24 | NUR ---
ROUNDS Pt. is awake and resting quietly in bed. Respirations are even and unlabored with visible chest rise and fall. No s/s of acute distress. Safety measures in place. No s/s of injury related to bilateral soft wrist restraints. Room near nurses station. Will continue to monitor.
[2016-10-09 04:05] VITALS: BP 146/79; PULSE 60; RESP 17; TEMP 97; O2SAT 95
--- NOTE | 2016-10-09 04:17 | NUR ---
ROUNDS Pt. is resting quietly in bed with eyes closed. Respirations are even and unlabored with visible chest rise and fall. No s/s of acute distress. No s/s of injury related to bilateral soft wrist restraints. Safety measures in place. Room near nurses station. Will continue to monitor.
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
--- NOTE | 2016-10-09 08:00 | NUR ---
Routine Patient resting comfortably in bed with no acute distress noted. Bilateral soft wrist restraints.
[2016-10-09 08:01] VITALS: BP 146/75; PULSE 60; RESP 20; TEMP 94.8; O2SAT 96
[2016-10-09] MEDS: BALSAM PERU/CASTOR OIL 60 GM OINT...G. TP SCH (09:00)
[2016-10-09] MEDS: ACETAMINOPHEN 325 MG TABLET PO SCH (09:00)
[2016-10-09] MEDS: BRIMONIDINE TARTRATE 0.2% 5 mL EYE DROPS OP SCH (09:56)
[2016-10-09] MEDS: QUEtiapine FUMARATE 25 MG TABLET PO SCH ×2 (09:56→13:42)
[2016-10-09] MEDS: FERROUS SULFATE 325 MG TABLET.DR PO SCH (09:56)
[2016-10-09] MEDS: PRAMIPEXOLE DI-HCL 0.25 MG TABLET PO SCH ×2 (09:56→16:02)
[2016-10-09] MEDS: CHOLECALCIFEROL (VITAMIN D3) 2,000 UNIT TABLET PO SCH (09:57)
--- NOTE | 2016-10-09 10:00 | NUR ---
Routine Scheduled medications given per order. Patient stable at this time.
--- NOTE | 2016-10-09 12:05 | NUR ---
Routine Patient resting comfortably in bed with no distress noted. Patient stable at this time.
[2016-10-09 12:49] VITALS: BP 155/79; PULSE 60; RESP 17; TEMP 97.8; O2SAT 97
[2016-10-09] MEDS: NACL 0.9% 1,000 ML IV SCH (13:43)
--- NOTE | 2016-10-09 13:47 | NUR ---
Routine Scheduled medication given per order. Patient stable at this time.
--- NOTE | 2016-10-09 15:30 | NUR ---
Routine Patient resting in bed with Dr. Huynh at bedside. Left heel wound dressing removed; wound cleansed with NS and new dressing applied. Patient tolerated well. Patient stable at this time.
--- NOTE | 2016-10-09 16:00 | NUR ---
Routine Scheduled IV ABX and po meds given per order. Patient resting in bed with daughterKasie at bedside. Patient stable at this time.
[2016-10-09] MEDS: cefTRIAXone 1 GM IVPB PREMIX 50 ML IV SCH (16:02)
[2016-10-09 16:30] VITALS: BP 149/72; PULSE 70; RESP 18; TEMP 98; O2SAT 98
--- NOTE | 2016-10-09 16:56 | NUR ---
DISCHARGE PLANNING DC order back to SNF. Spoke with Mekhi at [facility] confirmed patient assigned to room 6BA RN to report , bed available anytime. Called [facility] ambulance spoke with Maricel arranged S transport picking belt operator 6pm. Placed transportation packet in nurses station. Called and spoke with patient daughter Jannet Lorenzo who is agreeable with discharge back to SNF today.
--- NOTE | 2016-10-09 17:30 | NUR ---
Called report Called report to MINDY Deleon at [facility] [phone]. Patient will go to Room 6B.
[2016-10-09 18:29] VITALS: BP 149/72; PULSE 70; RESP 18; TEMP 98; O2SAT 98
--- NOTE | 2016-10-09 18:50 | NUR ---
Transfer [facility] [phone].
== END 2016-10-09 18:50 | DRG 853 ==
LOC: SED 14:39 → STU 17:45 → SMU 10-08 14:47
PROVIDERS: ADMIT Family Medicine; ATTEND Family Medicine
PROC: 0KBW0ZZ Excision of Left Foot Muscle, Open Approach (ICD-10-PCS; principal; 2016-10-07 08:45)
DX: A41.9 Sepsis, unspecified organism (principal); E43 Unspecified severe protein-calorie malnutrition; G93.41 Metabolic encephalopathy; N17.0 Acute kidney failure with tubular necrosis; L89.623 Pressure ulcer of left heel, stage 3; N39.0 Urinary tract infection, site not specified; D69.6 Thrombocytopenia, unspecified; E86.0 Dehydration; F03.90 Unspecified dementia, unspecified severity, without behavioral disturbance, psychotic disturbance, mood disturbance, and anxiety; G20 Parkinson's disease; H35.30 Unspecified macular degeneration; H54.40 Blindness, one eye, unspecified eye; N18.3 Chronic kidney disease, stage 3 (moderate); I12.9 Hypertensive chronic kidney disease with stage 1 through stage 4 chronic kidney disease, or unspecified chronic kidney disease; K59.09 Other constipation; Z66 Do not resuscitate; Z74.01 Bed confinement status; Z68.25 Body mass index [BMI] 25.0-25.9, adult; Z79.899 Other long term (current) drug therapy; Z85.46 Personal history of malignant neoplasm of prostate; Z95.0 Presence of cardiac pacemaker
CPT/HCPCS: 36415; 71010; 80048; 80053; 81000-TC; 83605; 83880; 84439; 84443-TC; 84484; 85025; 87040-TC; 87081; 87086; 88304; 93005; 93923; 96365; 96367; 99285; J0696; J2543; J7030; J7040

== ENCOUNTER 2016-10-18 17:22 | Emergency (ER) | payer OTHER, MEDICAID ==
[2016-10-06 15:03] VITALS: Ht 172.7 cm; Wt 74.8 kg
[~2016-10-18] VITALS: Ht 172.7 cm; Wt 74.8 kg
[2016-10-18 17:22] VITALS: BP 143/93; PULSE 70; RESP 16; TEMP 98; O2SAT 99
[~2016-10-18 17:22] MED LIST changes: +ACET-2165 PO; +ALPR0.5T96 PO; -NS 1000 ML BAG IV ONE; +ZIN220 PO
[2016-10-18] MEDS ORDERED: cefTRIAXone 1 GM IVPB PREMIX 50 ML IV ONE (17:45)
[2016-10-18] MEDS ORDERED: NS 1000 ML BAG IV ONE (17:45)
[2016-10-18 18:47] LABS: BASOPHILS % (AUTO) 0.2 % (0.0-2.0); EOSINOPHILS # (AUTO) 0.2 K/uL (0.0-0.4); EOSINOPHILS % (AUTO) 2.8 % (0.0-4.0); HEMATOCRIT 39.5 % (36-54); HEMOGLOBIN 12.8 g/dL (14.0-18.0); LYMPHOCYTES # (AUTO) 0.7 K/uL (1.0-5.5); LYMPHOCYTES % (AUTO) 8.7 % (20.5-51.5); MEAN CORPUSCULAR HEMOGLOBIN 31 pg (27-31); MEAN CORPUSCULAR HGB CONC 32 % (32-36); MEAN CORPUSCULAR VOLUME 95 fL (79.0-98.0); MONOCYTES # (AUTO) 0.3 K/uL (0.0-1.0); MONOCYTES % (AUTO) 3.2 % (1.7-9.3); NEUTROPHILS % (AUTO) 85.1 % (40.0-70.0); PLATELET COUNT (AUTO) 107 K/uL (130-430); RED BLOOD CELL COUNT(AUTO) 4.16 MIL/uL (4.2-6.2); RED CELL DISTRIBUTION WIDTH 16.6 % (9.0-15.0); WHITE BLOOD COUNT (AUTO) 8.2 K/uL (4.8-10.8)
[2016-10-18 18:57] LABS: ANION GAP 8 (5-15); CALCIUM 9.8 mg/dL (8.4-11.0); CHLORIDE 109 mmol/L (98-107); CREATININE 1.35 mg/dL (0.55-1.30); GLUCOSE 85 mg/dL (70-99); POTASSIUM 4.7 mmol/L (3.5-5.1); SODIUM SERUM 139 mmol/L (136-145); UREA NITROGEN, BLOOD 24 mg/dL (8-21)
[2016-10-18 19:02] LABS: ALANINE AMINOTRANSFERASE 22 U/L (12-78); ALBUMIN 2.6 g/dL (3.4-4.8); ASPARTATE AMINOTRANSFERASE 21 U/L (10-37); TOTAL BILIRUBIN 0.6 mg/dL (0.0-1.0); TOTAL PROTEIN, SERUM 7.4 g/dL (6.4-8.3)
[2016-10-18 19:19] LABS: PROTHROMBIN TIME 11.2 SECS (9.5-12.5)
[2016-10-18 20:06] LABS: BILIRUBIN,URINE NEGATIVE (NEGATIVE); BLOOD, URINE NEGATIVE (NEGATIVE); CLARITY/URINE CLEAR (CLEAR); COLOR,URINE YELLOW (YELLOW); GLUCOSE,URINE NEGATIVE (NEGATIVE); KETONES,URINE NEGATIVE (NEGATIVE); LEUKOCYTE ESTERASE ,URINE NEGATIVE (NEGATIVE); NITRITE, URINE NEGATIVE (NEGATIVE); PH,URINE 6.5 (5.0-8.0); PROTEIN URINE TRACE (NEGATIVE); UROBILINOGEN,URINE 0.2 (0.2-1.0)
[2016-10-18 20:19] LABS: BACTERIA,URINE FEW /HPF (None Seen); RBC,URINE 0-3 /HPF (0-3)
[2016-10-18 22:20] VITALS: BP 141/75; PULSE 79; RESP 16; TEMP 98.1; O2SAT 99
== END 2016-10-18 22:20 ==
LOC: SED 17:22
DX: I10 Essential (primary) hypertension (principal); C67.9 Malignant neoplasm of bladder, unspecified; C61 Malignant neoplasm of prostate; G20 Parkinson's disease; Z90.49 Acquired absence of other specified parts of digestive tract
CPT/HCPCS: 36415; 51702; 71010; 80053; 83605; 81000; 85025; 85610; 85730; 87040; 93005; 96365; 99285; J0696; J7030

== ENCOUNTER 2016-11-10 08:23 | Outpatient (CLI) | payer OTHER, MEDICAID ==
[2016-10-06 15:03] VITALS: BMI 25.8
== END 2016-11-10 19:55 | disposition home or self-care (01) ==
LOC: SUS 08:23
PROVIDERS: ATTEND Family Medicine
DX: N28.1 Cyst of kidney, acquired (principal); N40.0 Benign prostatic hyperplasia without lower urinary tract symptoms; Z85.528 Personal history of other malignant neoplasm of kidney
CPT/HCPCS: 76770